=== PATIENT | female | born 1985 | race African-American/Black ===

== ENCOUNTER 2018-05-27 04:46 | Emergency (ER) | payer BC ==
[2018-05-27] MEDS ORDERED: NORMAL SALINE 1000 ML 1,000 ML IV ONE ×2 (05:14→06:38)
--- NOTE | 2018-05-27 05:28 | ER Document Report ---
ED Extremity Problem, Lower - General TRAVEL OUTSIDE OF THE [place] IN LAST 30 DAYS: No <SKYE VILLA - Last Filed: 05/27/18 05:53> <TRCAY BURRIS - Last Filed: 05/27/18 18:30> - General Chief Complaint: Leg Pain Stated Complaint: LEG PAIN Time Seen by Provider: 05/27/18 05:05 Notes: Patient is a 32-year-old female presenting to the emergency department complaining of left lower calf pain. Patient states since this morning she has noticed all over muscular pain but states the pain in her left calf has gotten so bad that she is unable to bear weight on the left leg. Patient states she is a gastric sleeve patient and she is supposed to be taking multiple bariatric multivitamins which she has missed for the last couple of days. Patient denies any long train rides, car rides, bus rides, plane rides. Patient denies any recent lifting or moving or heavy working out. Patient denies URI symptoms, fever, chest pain, shortness of breath, vomiting, diarrhea, dysuria. Past medical history: GERD, anxiety Medications: Omeprazole, bariatric multivitamin, vitamin D supplement, iron, lorazepam, NuvaRing Allergies: Patient states she is allergic to an antibiotic but she is unsure the name of it Surgeries: Gastric sleeve Patient denies illicit drug use, denies EtOH use, denies cigarette smoking. ( SKYE VILLA) - Related Data Allergies/Adverse Reactions: No Known Allergies Allergy (Unverified 05/27/18 14:24) Past Medical History - General Information source: Patient - Social History Smoking Status: Never Smoker Lives with: Family Family History: Reviewed & Not Pertinent <SKYE VILLA - Last Filed: 05/27/18 05:53> Review of Systems - Review of Systems Constitutional: See HPI EENT: See HPI Cardiovascular: See HPI Respiratory: See HPI Gastrointestinal: See HPI Genitourinary: See HPI Female Genitourinary: See HPI Musculoskeletal: See HPI Skin: No symptoms reported Hematologic/Lymphatic: See HPI Neurological/Psychological: No symptoms reported <SKYE VILLA - Last Filed: 05/27/18 05:53> Physical Exam <SKYE VILLA - Last Filed: 05/27/18 05:53> <TRACY BURRIS - Last Filed: 05/27/18 18:30> - Vital signs Vitals: Temp Pulse Resp BP Pulse Ox 98 F 78 16 136/91 H 98 05/27/18 04:46 05/27/18 04:46 05/27/18 04:46 05/27/18 04:46 05/27/18 04:46 - Notes Notes: GENERAL: Alert, interacts well. No acute distress. HEAD: Normocephalic, atraumatic. EYES: Pupils equal, round, and reactive to light. Extraocular movements intact. ENT: Oral mucosa moist, tongue midline. NECK: Full range of motion. Supple. Trachea midline. LUNGS: Clear to auscultation bilaterally, no wheezes, rales, or rhonchi. No respiratory distress. HEART: Regular rate and rhythm. No murmur ABDOMEN: Soft, non-tender. Non-distended. Bowel sounds present in all 4 quadrants. EXTREMITIES: Moves all 4 extremities spontaneously. No edema, normal radial and dorsalis pedis pulses bilaterally. No cyanosis. Significant pain upon palpation and movement of the left calf. Pain in calf upon flexing and extending her left foot. No pallor or erythema noted left lower extremity. Bilateral lower extremities feel to be the same temperature to touch. BACK: no cervical, thoracic, lumbar midline tenderness. No saddle anesthesia, normal distal neurovascular exam. NEUROLOGICAL: Alert and oriented x3. Normal speech. cranial nerves II through XII grossly intact PSYCH: Normal affect, normal mood. SKIN: Warm, dry, normal turgor. No rashes or lesions noted. (SKYE VILLA) Course <SKYE VILLA - Last Filed: 05/27/18 05:53> - Laboratory Result Diagrams: 05/27/18 05:59 05/27/18 05:59 <TRACY BURRIS - Last Filed: 05/27/18 18:30> - Re-evaluation Re-evalutation: 05/27/18 09:30 Patient's Doppler test without any findings worrisome for DVT or SVT per Doppler debug technician. Provider to room to reevaluate patient. Patient states that she started to develop chest pain around 730 this morning. Patient denies any cough or shortness of breath. Patient does have tenderness with palpation of anterior chest wall. Abdomen is soft and nontender. 05/27/18 13:38 Patient's repeat troponin negative, patient presents with symptoms concerning for chest wall tenderness. Patient with heart score of of 0. Patient presents with generalized myalgia, no concern for rhabdomyolysis at this time. Patient' s vital signs stable. Patient is feeling better at this time and is agreeable with discharge plan of care. Patient encouraged to follow-up with her primary care provider for recheck. Patient verbalized understanding and agrees with plan of care. The patient has atypical chest pain as the patient's chest pain is not suggestive of pulmonary embolus, cardiac ischemia, aortic dissection, or other serious etiology. Given the extremely low risk of these diagnoses for the test in evaluation for these possibilities does not appear to be indicated at this time. Patient has been instructed to return if the symptoms worsen or change in any way. (TRACY BURRIS) - Vital Signs Vital signs: Temp Pulse Resp BP Pulse Ox 98.6 F 78 16 121/63 100 05/27/18 14:23 05/27/18 04:46 05/27/18 14:01 05/27/18 14:00 05/27/18 14:01 - Laboratory Laboratory results interpreted by me: 05/27/18 05/27/18 05:59 05:59 WBC 3.7 L MCV 78 L MCH 25.9 L RDW 15.8 H Plt Count 136 L Seg Neutrophils % 35.4 L Lymphocytes % 55.6 H Absolute Neutrophils 1.3 L Urine Ketones 20 H Urine Urobilinogen 4.0 H Discharge <SKYE VILLA - Last Filed: 05/27/18 05:53> <TRACY BURRIS - Last Filed: 05/27/18 18:30> - Discharge Clinical Impression: Myalgia, Chest wall pain Condition: Stable Disposition: HOME, SELF-CARE Instructions: Acetaminophen, Chest Wall Pain ([facility]), Muscle Relaxers ([facility]), Myalagia (Muscle Pain) ([facility]) Additional Instructions: Return immediately for any new or worsening symptoms Followup with your primary care provider, call tomorrow to make a followup appointment Prescriptions: Cyclobenzaprine HCl [Flexeril 10 Mg Tablet] 10 mg PO TID #15 tablet Forms: Return to Work
[2018-05-27 06:18] LABS: ABSOLUTE LYMPHOCYTES (AUTO) 2.1 10^3/uL (0.5-4.7); ABSOLUTE MONOCYTES (AUTO) 0.3 10^3/uL (0.1-1.4); ABSOLUTE NEUT (AUTO) 1.3 10^3/uL (1.7-8.2); BASOPHILS % (AUTO) 0.7 % (0-2); EOSINOPHILS % (AUTO) 0.2 % (0-6); HEMATOCRIT 36.3 % (36.0-47.0); LYMPHOCYTES % (AUTO) 55.6 % (13-45); MEAN CORPUSCULAR HEMOGLOBIN 25.9 pg (27.0-33.4); MEAN CORPUSCULAR HGB CONC 33.1 g/dL (32.0-36.0); MEAN CORPUSCULAR VOLUME 78 fl (80-97); MONOCYTES % (AUTO) 8.1 % (3-13); PLATELET COUNT 136 10^3/uL (150-450); RED BLOOD COUNT 4.63 10^6/uL (3.72-5.28); RED CELL DISTRIBUTION WIDTH 15.8 % (11.5-14.0); SEGMENTED NEUTROPHILS % (AUTO) 35.4 % (42-78); TOTAL CELLS COUNTED % (AUTO) 100 %; WHITE BLOOD COUNT 3.7 10^3/uL (4.0-10.5)
[2018-05-27 06:36] LABS: APPEARANCE,URINE SLIGHTLY-CLOUDY; BILIRUBIN,URINE NEGATIVE (NEGATIVE); COLOR,URINE YELLOW; GLUCOSE, URINE NEGATIVE (NEGATIVE); KETONES,URINE 20 mg/dL (NEGATIVE); LEUKOCYTE ESTERASE,URINE NEGATIVE (NEGATIVE); NITRITE,URINE NEGATIVE (NEGATIVE); PROTEIN,URINE NEGATIVE (NEGATIVE)
[2018-05-27 06:39] LABS: ALANINE AMINOTRANSFERASE 18 U/L (9-52); ALBUMIN 4.8 g/dL (3.5-5.0); ALKALINE PHOSPHATASE 45 U/L (38-126); ANION GAP 14 (5-19); ASPARTATE AMINO TRANSFERASE 24 U/L (14-36); BILIRUBIN,DIRECT 0.4 mg/dL (0.0-0.4); BILIRUBIN,TOTAL 0.8 mg/dL (0.2-1.3); BLOOD UREA NITROGEN 12 mg/dL (7-20); CALCIUM 9.7 mg/dL (8.4-10.2); CARBON DIOXIDE 24 mmol/L (22-30); CHLORIDE 104 mmol/L (98-107); CREATINE KINASE 108 U/L (30-135); GLUCOSE 81 mg/dL (75-110); POTASSIUM 4.1 mmol/L (3.6-5.0); SODIUM 142.3 mmol/L (137-145)
[2018-05-27] MEDS ORDERED: ASPIRIN 81 MG TABLET, CHEWABLE PO ONE (09:29)
[2018-05-27] MEDS ORDERED: ACETAMINOPHEN 325 MG TABLET PO ONE (09:29)
[2018-05-27] MEDS ORDERED: NORMAL SALINE 1000 ML 1,000 ML IV PRN (09:31)
--- NOTE | 2018-05-27 09:43 | RADIOLOGY REPORT (SQ) ---
EXAM DESCRIPTION: VENOUS UNILATERAL LOWER COMPLETED DATE/TIME: 05/27/2018 9:32 am REASON FOR STUDY: pain left calf COMPARISON: None. TECHNIQUE: Dynamic and static humphrey scale and color images acquired of the left leg venous system. Se lected spectral images acquired with additional compression and augmentation maneuvers. The contralat eral common femoral vein and saphenofemoral junction were also imaged. Images stored on PACS. LIMITATIONS: None. FINDINGS: COMMON FEMORAL: Normal phasicity, compression and augmentation. No visualized echogenic ma terial on humphrey scale. No defects on color images. FEMORAL: Normal compression and augmentation. No visualized echogenic material on humphrey scale. No defe cts on color images. POPLITEAL: Normal compression, augmentation. No visualized echogenic material on humphrey scale. No defec ts on color images. CALF VESSELS: Normal compression, augmentation. No visualized echogenic material on humphrey scale. No de fects on color images. GSV and SSV: Normal compression, augmentation. No visualized echogenic material on humphrey scale. No def ects on color images. ANY DEEP VENOUS INSUFFICIENCY: No. ANY EVIDENCE OF POPLITEAL CYST: No. OTHER: No other significant finding. CONTRALATERAL COMMON FEMORAL VEIN AND SAPHENOFEMORAL JUNCTION: Normal phasicity, compression and augmentation. No visualized echogenic material on humphrey scale. No de fects on color images. IMPRESSION: NO EVIDENCE DVT OR SVT IN THE LEFT LEG. TECHNICAL DOCUMENTATION: JOB ID: [id number] [employer]- All Rights Reserved Reading location - IP/workstation name: [email or web address]
--- NOTE | 2018-05-27 10:22 | EKG REPORT ---
SEVERITY:- NORMAL ECG - SINUS RHYTHM : Confirmed by: Marleni Gutiérrez MD 27-May-2018 10:21:29
[2018-05-27 10:32] LABS: CREATINE KINASE MB 0.74 ng/mL (<4.55)
[2018-05-27 10:33] LABS: TROPONIN I < 0.012 ng/mL
--- NOTE | 2018-05-27 11:07 | RADIOLOGY REPORT (SQ) ---
EXAM DESCRIPTION: CHEST 2 VIEWS COMPLETED DATE/TIME: 05/27/2018 10:40 am REASON FOR STUDY: cp COMPARISON: Chest x-ray from [facility] dated 09/09/2016. EXAM PARAMETERS: NUMBER OF VIEWS: two views TECHNIQUE: Digital Frontal and Lateral radiographic views of the chest acquired. RADIATION DOSE: NA LIMITATIONS: none FINDINGS: LUNGS AND PLEURA: No opacities, masses or pneumothorax. No pleural effusion. MEDIASTINUM AND HILAR STRUCTURES: No masses or contour abnormalities. HEART AND VASCULAR STRUCTURES: Heart normal size. No evidence for failure. BONES: No acute findings. HARDWARE: None in the chest. OTHER: No other significant finding. IMPRESSION: NO ACUTE RADIOGRAPHIC FINDING IN THE CHEST. TECHNICAL DOCUMENTATION: JOB ID: [id number] [a[employer]- All Rights Reserved Reading location - IP/workstation name: [email or web address]
[2018-05-27 14:16] VITALS: BP 121/63
== END 2018-05-27 14:32 | disposition home or self-care (01) ==
LOC: ER 04:46
DX: M79.18 Myalgia, other site (principal); K21.9 Gastro-esophageal reflux disease without esophagitis; F41.9 Anxiety disorder, unspecified; R07.89 Other chest pain; Z79.899 Other long term (current) drug therapy; Z97.5 Presence of (intrauterine) contraceptive device; Z98.84 Bariatric surgery status
CPT/HCPCS: 93005; 99284; 96360; 96361; 36415; 82553; 82550; 85025; 81025; 80053; 81001; 84484; 93971; 71046; 93010; J7030

== ENCOUNTER → 2019-07-06 | Outpatient (CLI) | payer OTHER, MEDICAID | LOC: OD 09:55 | PROVIDERS: ATTEND Advanced Practice Midwife | DX: N91.2 Amenorrhea, unspecified (principal) | CPT/HCPCS: 36415; 84702 ==

== ENCOUNTER → 2019-07-09 | Outpatient (CLI) | payer OTHER, MEDICAID | LOC: OD 10:01 | PROVIDERS: ATTEND Advanced Practice Midwife | DX: O20.0 Threatened abortion (principal); Z3A.00 Weeks of gestation of pregnancy not specified | CPT/HCPCS: 36415; 84702; 86900; 86901 ==